=== PATIENT | male | born 1980 | race African-American/Black ===

== ENCOUNTER 2016-08-29 23:11 | Emergency (ER) | payer SELFPAY ==
--- NOTE | 2016-08-30 03:44 | ER Document Report ---
Addendum entered and electronically signed by FREDY CHERRY NP 19:02: Discharge - Discharge Clinical Impression: Acetabular fracture Qualifiers: Encounter type: initial encounter Sublocation of acetabulum: unspecified portion of acetabulum Fracture type: closed Fracture alignment: displaced Laterality: left Qualified Code(s): S32.402A - Unspecified fracture of left acetabulum, initial encounter for closed fracture Condition: Stable Disposition: [facility] Original Note: ED Hip Pain/Injury - General Time seen by provider: 03:44 Mode of Arrival: Wheelchair Information source: Patient TRAVEL OUTSIDE OF THE [place] IN LAST 30 DAYS: No - HPI Patient complains to provider of: Injury, Pain, Hip - Left Occurred: This evening Where: Outdoors - Basketball Onset/Duration: Sudden Quality of pain: Sharp, Throbbing Severity: Severe Pain Level: 5 Context: Other - Tripped and fell playing basketball Symptoms prior to fall: None Symptoms since fall: Other - Pain and hip Rotation of extremity: None Pain with palpation of the pelvis: Yes Associated Symptoms: None Other injuries: LLE - General Chief Complaint: Hip Injury Stated Complaint: HIP PAIN Notes: 36 you male presents to ED for the left hip pain states he can barely walk after plan basketball around 8:00. He states someone blocking caused him to trip suddenly fall and has not been able to walk on that leg since. (FREDY CHERRY) - Related Data Allergies/Adverse Reactions: No Known Allergies Allergy (Unverified 08/29/16 23:30) Past Medical History - General Information source: Patient - Social History Smoking Status: Current Every Day Smoker Cigarette use (# per day): Yes - pack per day Chew tobacco use (# tins/day): No Smoking Education Provided: Yes - acetaminophen 2 minutes Frequency of alcohol use: None Drug Abuse: Marijuana Occupation: [employer] Lives with: Alone - With children Family History: Arthritis, DM, Malignancy Patient has suicidal ideation: No Patient has homicidal ideation: No - Past Medical History Cardiac Medical History: Reports: None Pulmonary Medical History: Reports: None EENT Medical History: Reports: None Neurological Medical History: Reports: None Endocrine Medical History: Reports: None Renal/ Medical History: Reports: None Malignancy Medical History: Reports None GI Medical History: Reports: None Musculoskeltal Medical History: Reports Hx Musculoskeletal Trauma Skin Medical History: Reports None Psychiatric Medical History: Reports: None Traumatic Medical History: Reports: Hx Fractures - Toes and thumb Infectious Medical History: Reports: None Surgical Hx: Negative Past Surgical History: Reports: None - Immunizations Immunizations up to date: Yes Hx Diphtheria, Pertussis, Tetanus Vaccination: Yes Review of Systems - Review of Systems Constitutional: No symptoms reported EENT: No symptoms reported Cardiovascular: No symptoms reported Respiratory: No symptoms reported Gastrointestinal: No symptoms reported Genitourinary: No symptoms reported Male Genitourinary: No symptoms reported Musculoskeletal: Other - Left hip pain radiates down leg Skin: No symptoms reported Hematologic/Lymphatic: No symptoms reported Neurological/Psychological: No symptoms reported -: Yes All other systems reviewed and negative Physical Exam - Vital signs Interpretation: Normal - General General appearance: Appears well, Alert - HEENT Head: Normocephalic, Atraumatic Eyes: Normal Pupils: PERRL - Respiratory Respiratory status: No respiratory distress Chest status: Nontender Breath sounds: Normal Chest palpation: Normal - Cardiovascular Rhythm: Regular Heart sounds: Normal auscultation Murmur: No - Abdominal Inspection: Normal Distension: No distension Bowel sounds: Normal Tenderness: Nontender Organomegaly: No organomegaly - Back Back: Normal, Nontender - Extremities General upper extremity: Normal inspection, Nontender, Normal color, Normal ROM , Normal temperature General lower extremity: Normal inspection, Normal color, Normal temperature. No: Bhaskar's sign Hip: Tender, Pain with ROM. No: Abrasion, Deformity, Dislocation, Ecchymosis, Instability, Laceration Thigh: Tender - Neurological Neuro grossly intact: Yes Cognition: Normal Orientation: AAOx4 Romel Coma Scale Eye Opening: Spontaneous Weston Coma Scale Verbal: Oriented Rmoel Coma Scale Motor: Obeys Commands Weston Coma Scale Total: 15 Speech: Normal Motor strength normal: LUE, RUE, LLE, RLE Sensory: Normal - Psychological Associated symptoms: Normal affect, Normal mood - Skin Skin Temperature: Warm Skin Moisture: Dry Skin Color: Normal Course - Diagnostic Test Radiology reviewed: Image reviewed, Reports reviewed - Re-evaluation Re-evalutation: 08/30/16 05:43 Consult to who approved the CT of the hip. CT came back comminuted fracture of the acetabulum rim. [facility] consult for transfer awaiting reply. 08/30/16 06:[address] Payne from orthopedics at [facility]. He stated that just they could take the patient but that he would need to go to ER to ER. Spoke with Dr. Juárez at the ER he stated yes they could take the patient but that Dr Payne would be the accepting physician. 08/30/16 07:15 Patient was examined by Dr. Francis. Awaiting transport to [facility]. Report given to Jayashree Sibley [facility], (FREDY CHERRY) 08/30/16 07:20 Bedside report and handoff received. Patient resting quietly with family at bedside. Patient denies needs or complaints at this time. 08/30/16 11:37 financial secretary reports pt should be transferred around 12:30 today. Will keep pt NPO pending transfer. Pt denies any other needs at present. 08/30/16 12:42 Patients pain controlled. Patient with positive dorsalis pedis and posterior tibial pulse. Patient denies complaints at present. Transport crew here to move patient. Patient stable for transfer (JAYASHREE SIBLEY) 08/30/16 12:32 pt is stable at this time, given pain control for transport (BISHOP LUEVANO) - Vital Signs Vital signs: Temp Pulse Resp BP Pulse Ox 97.9 F 60 16 112/73 100 08/30/16 12:17 08/30/16 12:17 08/30/16 12:17 08/30/16 12:17 08/30/16 12:17 (FREDY CHERRY) (BECKY FRANCIS) (JAYASHREE SIBLEY) (BISHOP LUEVANO) - Transfer of Care Notes: 08/30/16 07:53 I did evaluate the patient in conjunction with the nurse practitioner. Patient looks well. His only complaint injury appears to be with the left hip which is the left acetabular fracture. Distal pulses in the extremities are normal. Distal sensation is normal. I feel he is stable for transfer to [facility]. We do have to transfer because we do not have orthopedics second steward. (BECKY FRANCIS) Discharge - Discharge Clinical Impression: Fracture of acetabulum Qualifiers: Encounter type: initial encounter Sublocation of acetabulum: unspecified portion of acetabulum Fracture type: closed Fracture alignment: displaced Laterality: left Qualified Code(s): S32.402A - Unspecified fracture of left acetabulum, initial encounter for closed fracture Condition: Stable Disposition: [facility]
[2016-08-30] MEDS ORDERED: OXYCODONE-ACETAMINOPHEN 5-325 MG TABLET PO ONE ×3 (05:07→12:03)
[2016-08-30 12:20] VITALS: BP 112/73
[2016-08-30] MEDS ORDERED: HYDROMORPHONE HCL INJ/PF 2 MG/ML AMPULE IV ONE (12:29)
== END 2016-08-30 12:45 | disposition short-term general hospital (02) ==
LOC: ER 23:11
DX: S32.492A Other specified fracture of left acetabulum, initial encounter for closed fracture (principal); W01.0XXA Fall on same level from slipping, tripping and stumbling without subsequent striking against object, initial encounter; Y93.67 Activity, basketball; F17.210 Nicotine dependence, cigarettes, uncomplicated; Z71.6 Tobacco abuse counseling
CPT/HCPCS: 82962; 99285

== ENCOUNTER 2017-05-05 12:19 | Emergency (ER) | payer SELFPAY ==
--- NOTE | 2017-05-05 12:38 | ER Document Report ---
HPI - HPI Patient complains to provider of: Fall Pain Level: 5 Context: Patient is a 37-year-old male who presents emergency department [place]. Patient states that he tripped and was caught by a officer who assisted him to the ground. Denies any contact trauma to his left hip. States that he did require hip surgery back in August for broken hip but otherwise has been uncomplicated. Patient has been able to ambulate since this fall. Otherwise no deformity noted no sensory deficits of the distal extremity - DERM Skin Color: Normal Past Medical History - Social History Smoking Status: Former Smoker Family History: Arthritis, DM, Malignancy Renal/ Medical History: Denies: Hx Peritoneal Dialysis Musculoskeltal Medical History: Reports Hx Musculoskeletal Trauma Traumatic Medical History: Reports: Hx Fractures - Toes and thumb - Immunizations Immunizations up to date: Yes Hx Diphtheria, Pertussis, Tetanus Vaccination: Yes Vertical Provider Document - CONSTITUTIONAL Agree With Documented VS: Yes Exam Limitations: No Limitations General Appearance: WD/WN, No Apparent Distress - INFECTION CONTROL TRAVEL OUTSIDE OF THE [place] IN LAST 30 DAYS: No - HEENT HEENT: Atraumatic, Normal ENT Exam, Normocephalic, PERRLA - RESPIRATORY Respiratory: Breath Sounds Normal, No Respiratory Distress, Chest Non-Tender O2 Sat by Pulse Oximetry: 99 - CARDIOVASCULAR Cardiovascular: Regular Rate, Regular Rhythm, No Murmur Pulses: Normal: Radial, Femoral, Dorsalis pedis - MUSCULOSKELETAL/EXTREMETIES Musculoskeletal/Extremeties: MAEW, FROM, Non-Tender, No Edema. negative: Eccymosis Notes: No evidence of deformity. - NEURO Level of Consciousness: Awake, Alert, Appropriate Motor/Sensory: negative: Weak Motor Strength RLE, Weak Motor Strength LLE - DERM Integumentary: Warm, Dry, No Rash Course - Re-evaluation Re-evalutation: 05/05/17 14:31 Patient is a 37-year-old male is hemodynamic stable, no acute distress afebrile. Extremities neurovascularly intact without any signs of deformity or injury. No evidence of a septic joint, gout flare, dislocation, or fracture on exam and imaging. Vitals wnl. At this time, I do not see an indication for labs or further imaging. Will discharge with conservative measures, return precautions, and follow-up recommendations. - Vital Signs Vital signs: Temp Pulse Resp BP Pulse Ox 98.3 F 85 16 131/88 H 99 05/05/17 12:26 05/05/17 12:26 05/05/17 12:26 05/05/17 12:26 05/05/17 12:26 - Diagnostic Test Radiology reviewed: Image reviewed, Reports reviewed Discharge - Discharge Clinical Impression: Fall Condition: Good Disposition: HOME, SELF-CARE Instructions: Acetaminophen, Contusion ([facility]), Use of [id number]-[id number] Ibuprofen ([facility]), Ice Packs ([facility]) Forms: Special Work Note
--- NOTE | 2017-05-05 13:33 | RADIOLOGY REPORT (SQ) ---
EXAM DESCRIPTION: FEMUR LEFT COMPLETED DATE/TIME: 05/05/2017 1:19 pm REASON FOR STUDY: fall COMPARISON: None. NUMBER OF VIEWS: Two views. TECHNIQUE: Two radiographic images acquired of the left femur to include hip and knee in at least on e projection. LIMITATIONS: None. FINDINGS: MINERALIZATION: Normal. BONES: No acute fracture. No worrisome bone lesions. SOFT TISSUES: No obvious swelling or foreign body. OTHER: No other significant finding. IMPRESSION: NEGATIVE STUDY OF THE LEFT FEMUR. NO RADIOGRAPHIC EVIDENCE OF ACUTE INJURY. TECHNICAL DOCUMENTATION: JOB ID: [id number] [employer]- All Rights Reserved
--- NOTE | 2017-05-05 13:35 | RADIOLOGY REPORT (SQ) ---
EXAM DESCRIPTION: PELVIS AP COMPLETED DATE/TIME: 05/05/2017 1:20 pm REASON FOR STUDY: fall COMPARISON: None. NUMBER OF VIEWS: One view TECHNIQUE: AP Pelvis LIMITATIONS: None. FINDINGS: MINERALIZATION: Normal. HIPS: No acute fracture or dislocation. No worrisome bone lesions. PELVIS AND SACRUM: No acute fracture or dislocation. No worrisome bone lesions. PUBIS AND ISCHIUM: No acute fracture. LOWER LUMBAR SPINE: No significant findings as visualized. SOFT TISSUES: No findings. OTHER: Surgical hardware is present overlying the left acetabulum. IMPRESSION: NEGATIVE STUDY OF THE PELVIS. PRIOR SURGICAL CHANGES. TECHNICAL DOCUMENTATION: JOB ID: [id number] [employer]- All Rights Reserved
[2017-05-05] MEDS ORDERED: IBUPROFEN 800 MG TABLET PO ONE (14:00)
[2017-05-05] MEDS ORDERED: ACETAMINOPHEN 325 MG TABLET PO ONE (14:00)
[2017-05-05 14:14] VITALS: BP 122/80
== END 2017-05-05 14:22 | disposition home or self-care (01) ==
LOC: ER 12:19
DX: Z04.3 Encounter for examination and observation following other accident (principal); W10.9XXA Fall (on) (from) unspecified stairs and steps, initial encounter; Y92.240 Courthouse as the place of occurrence of the external cause; Z87.81 Personal history of (healed) traumatic fracture; Z98.890 Other specified postprocedural states; Z87.891 Personal history of nicotine dependence
CPT/HCPCS: 72170; 99283

== ENCOUNTER → 2020-01-18 | Outpatient (CLI) | payer MEDICAID ==
[2020-01-18 10:29] LABS: ABSOLUTE BASOPHILS # (AUTO) 0.1 10^3/uL (0.0-0.2); ABSOLUTE EOSINOPHILS # (AUTO) 0.1 10^3/uL (0.0-0.6); ABSOLUTE LYMPHOCYTES (AUTO) 2.2 10^3/uL (0.5-4.7); ABSOLUTE MONOCYTES (AUTO) 0.7 10^3/uL (0.1-1.4); ABSOLUTE NEUT (AUTO) 3.4 10^3/uL (1.7-8.2); BASOPHILS % (AUTO) 1.2 % (0-2); HEMOGLOBIN 14.2 g/dL (13.5-17.0); LYMPHOCYTES % (AUTO) 33.9 % (13-45); MEAN CORPUSCULAR HEMOGLOBIN 24.9 pg (27.0-33.4); MEAN CORPUSCULAR HGB CONC 33.1 g/dL (32.0-36.0); MEAN CORPUSCULAR VOLUME 75 fl (80-97); MONOCYTES % (AUTO) 11.1 % (3-13); PLATELET COUNT 213 10^3/uL (150-450); RED BLOOD COUNT 5.73 10^6/uL (4.35-5.55); RED CELL DISTRIBUTION WIDTH 15.2 % (11.5-14.0); SEGMENTED NEUTROPHILS % (AUTO) 51.8 % (42-78); TOTAL CELLS COUNTED % (AUTO) 100 %; WHITE BLOOD COUNT 6.5 10^3/uL (4.0-10.5)
[2020-01-18 10:57] LABS: ALBUMIN 4.2 g/dL (3.5-5.0); ALKALINE PHOSPHATASE 62 U/L (38-126); ANION GAP 5 (5-19); ASPARTATE AMINO TRANSFERASE 26 U/L (17-59); BILIRUBIN,TOTAL 0.3 mg/dL (0.2-1.3); BLOOD UREA NITROGEN 14 mg/dL (7-20); CALCIUM 9.6 mg/dL (8.4-10.2); CARBON DIOXIDE 27 mmol/L (22-30); CHLORIDE 107 mmol/L (98-107); CHOLESTEROL 225.58 mg/dL (0-200); GLUCOSE 96 mg/dL (75-110); POTASSIUM 4.8 mmol/L (3.6-5.0); TOTAL PROTEIN 7.3 g/dL (6.3-8.2); TRIGLYCERIDES 87 mg/dL (<150)
[2020-01-18 11:07] LABS: DIRECT LDL 171 mg/dL (<100)
--- NOTE | 2020-01-18 11:09 | RADIOLOGY REPORT (SQ) ---
EXAM DESCRIPTION: LUMBAR SPINE COMPLETE IMAGES COMPLETED DATE/TIME: 01/18/2020 10:07 am REASON FOR STUDY: DORSALGIA, UNSPECIFIED,LBP M25.559 PAIN IN UNSPECIFIED HIP M54.9 DORSALGIA, UNSP ECIFIED Z13.29 ENCOUNTER FOR SCREENING FOR OTH SUSPECTED ENDOCRINE D COMPARISON: None. NUMBER OF VIEWS: Five views including obliques. TECHNIQUE: AP, lateral, oblique, and sacral radiographic images acquired of the lumbar spine. LIMITATIONS: None. FINDINGS: MINERALIZATION: Normal. SEGMENTATION: There are 6 lumbar-type vertebral bodies. For the purposes of enumeration the 1st non rib-bearing lumbar-type vertebral body is considered L1 and the 6th lumbar-type vertebral body is con sidered a transitional S1 segment. ALIGNMENT: Normal. VERTEBRAE: The lumbar vertebral body heights are preserved. There is no fracture. DISCS: The intervertebral disc spaces are preserved. POSTERIOR ELEMENTS: Intact. There is no pars interarticularis defect. HARDWARE: None in the spine. PARASPINAL SOFT TISSUES: Normal. PELVIS: Intact. OTHER: No other finding. IMPRESSION: No acute fracture or malalignment of the lumbar spine. TECHNICAL DOCUMENTATION: JOB ID: [id number] [employer]- All Rights Reserved Reading location - IP/workstation name: [email or web address]
--- NOTE | 2020-01-18 11:11 | RADIOLOGY REPORT (SQ) ---
EXAM DESCRIPTION: SACRUM AND COCCYX IMAGES COMPLETED DATE/TIME: 01/18/2020 10:06 am REASON FOR STUDY: DORSALGIA, UNSPECIFIED,LBP M25.559 PAIN IN UNSPECIFIED HIP M54.9 DORSALGIA, UNSP ECIFIED Z13.29 ENCOUNTER FOR SCREENING FOR OTH SUSPECTED ENDOCRINE D COMPARISON: None. NUMBER OF VIEWS: Three views. TECHNIQUE: AP, lateral, and tilt views of the sacrum and coccyx. LIMITATIONS: None. FINDINGS: MINERALIZATION: Normal. 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 The re is no acute fracture or osseous lesion. SOFT TISSUES: No radiopaque foreign body. OTHER: ORIF hardware in the left acetabulum. IMPRESSION: No acute osseous abnormality of the sacrum and coccyx. TECHNICAL DOCUMENTATION: JOB ID: [id number] 2010 [employer]- All Rights Reserved Reading location - IP/workstation name: [email or web address]
--- NOTE | 2020-01-18 11:14 | RADIOLOGY REPORT (SQ) ---
EXAM DESCRIPTION: HIP LEFT AP/LATERAL IMAGES COMPLETED DATE/TIME: 01/18/2020 10:06 am REASON FOR STUDY: LT HIP PAIN M25.559 PAIN IN UNSPECIFIED HIP M54.9 DORSALGIA, UNSPECIFIED Z13.29 ENCOUNTER FOR SCREENING FOR OTH SUSPECTED ENDOCRINE D COMPARISON: AP and lateral views of the left hip from 08/29/2016. NUMBER OF VIEWS: Two views. TECHNIQUE: AP pelvis and additional frog-leg view of the left hip. LIMITATIONS: None. FINDINGS: MINERALIZATION: Normal. LEFT HIP: Acetabular ORIF hardware. There is no acute fracture or dislocation. RIGHT HIP: No fracture or dislocation. PUBIS AND ISCHIUM: The ilioischial and iliopectineal lines are intact. There is no diastasis of the pubic symphysis. PELVIS: Intact. SACRUM: Intact. SOFT TISSUES: Pelvic phleboliths. OTHER: No other finding. IMPRESSION: Acetabular ORIF hardware on the left. There is no acute osseous abnormality of the left hip. TECHNICAL DOCUMENTATION: JOB ID: [id number] 2010 [employer]- All Rights Reserved Reading location - IP/workstation name: [email or web address]
== END ==
LOC: OD 09:32
PROVIDERS: ATTEND Family Medicine Geriatric Medicine
DX: Z00.00 Encounter for general adult medical examination without abnormal findings (principal); Z13.1 Encounter for screening for diabetes mellitus; Z13.220 Encounter for screening for lipoid disorders; M25.552 Pain in left hip
CPT/HCPCS: 36415; 72110; 72220; 80053; 80061; 84443; 84550; 85025

== ENCOUNTER → 2020-02-18 | Outpatient (CLI) | payer MEDICAID ==
[2020-02-18 14:35] LABS: ABSOLUTE BASOPHILS # (AUTO) 0.1 10^3/uL (0.0-0.2); ABSOLUTE LYMPHOCYTES (AUTO) 1.9 10^3/uL (0.5-4.7); ABSOLUTE MONOCYTES (AUTO) 0.6 10^3/uL (0.1-1.4); ABSOLUTE NEUT (AUTO) 2.9 10^3/uL (1.7-8.2); BASOPHILS % (AUTO) 1.2 % (0-2); EOSINOPHILS % (AUTO) 0.8 % (0-6); HEMATOCRIT 41.5 % (37.9-51.0); MEAN CORPUSCULAR HEMOGLOBIN 24.9 pg (27.0-33.4); MEAN CORPUSCULAR HGB CONC 33.6 g/dL (32.0-36.0); MEAN CORPUSCULAR VOLUME 74 fl (80-97); MONOCYTES % (AUTO) 11.1 % (3-13); PLATELET COUNT 221 10^3/uL (150-450); RED BLOOD COUNT 5.61 10^6/uL (4.35-5.55); RED CELL DISTRIBUTION WIDTH 15.1 % (11.5-14.0); SEGMENTED NEUTROPHILS % (AUTO) 52.9 % (42-78); TOTAL CELLS COUNTED % (AUTO) 100 %; WHITE BLOOD COUNT 5.5 10^3/uL (4.0-10.5)
[2020-02-21 16:37] LABS: HGB A2 1.9 % (1.8-3.2); HGB SOLUBILITY RESULT Negative (Negative)
== END ==
LOC: OD 13:50
PROVIDERS: ATTEND Family Medicine Geriatric Medicine
DX: E78.5 Hyperlipidemia, unspecified (principal); R71.8 Other abnormality of red blood cells; R79.89 Other specified abnormal findings of blood chemistry; Z79.899 Other long term (current) drug therapy
CPT/HCPCS: 36415; 82728; 83020; 83540; 83550; 84466; 85025